=== PATIENT | male | born 1965 | race Two or more races ===

== ENCOUNTER 2023-11-07 10:13 | Outpatient (CLI) | payer OTHER | END 2023-11-07 10:33 | disposition home or self-care (01) | LOC: MRI 10:13 | PROVIDERS: ATTEND Specialist | DX: E78.1 Pure hyperglyceridemia (principal); D72.819 Decreased white blood cell count, unspecified; D64.9 Anemia, unspecified; M25.511 Pain in right shoulder; I10 Essential (primary) hypertension | CPT/HCPCS: 73221 ==

== ENCOUNTER → 2023-12-12 | Outpatient (CLI) | payer OTHER | END | disposition home or self-care (01) | LOC: RAD 16:07 | DX: M75.51 Bursitis of right shoulder (principal); M75.41 Impingement syndrome of right shoulder ==

== ENCOUNTER 2024-01-08 11:14 | Outpatient (CLI) | payer OTHER ==
[2024-01-10] MEDS ORDERED: MEDROLPACK PO (15:32)
[2024-01-10] MEDS ORDERED: DICLOFENAC POTA50 MG PO (15:32)
== END 2024-01-08 11:15 | disposition home or self-care (01) ==
LOC: NUCLEAR 11:14
PROVIDERS: ATTEND Internal Medicine
DX: D69.9 Hemorrhagic condition, unspecified (principal)